=== PATIENT | female | born 1985 | race Caucasian/White ===

== ENCOUNTER 2017-11-17 17:42 | Emergency (ER) | payer MEDICAID, SELFPAY ==
[2017-11-17 17:43] VITALS: BP 157/84; PULSE 102; RESP 22; TEMP 36.8; O2SAT 100; BMI 22.6
--- NOTE | 2017-11-17 18:18 | CT_ITS ---
STUDY: CT ABDOMEN AND PELVIS WITHOUT CONTRAST REASON FOR EXAM: Female, 32 years old. Left flank pain for 4 days. RADIATION DOSAGE (If Supplied By Facility): CTDIvol = ( 6.67 ) mGy, DLP = ( 320.08 ) mGycm TECHNIQUE: Transaxial images were obtained from the dome of the diaphragm to the symphysis pubis without oral contrast, and without intravenous contrast. Sagittal and coronal images were reconstructed. Individualized dose optimization techniques were used for this CT. COMPARISON: None. FINDINGS: The visualized lung bases are unremarkable. The visualized portions of the heart are within normal limits. Normal liver. Normal gallbladder and extrahepatic biliary system. Normal spleen. Normal pancreas. Normal bilateral adrenal glands. Normal right kidney. Small cortical hypodensity within the anterior left kidney is noted consistent with small cysts given Hounsfield units. Normal visualized stomach. Normal small intestine. Normal colon. There is non-visualization of the appendix. Normal abdominal aorta. Normal inferior vena cava. Normal retroperitoneum. Normal urinary bladder. Clips within the posterior adnexa are noted adjacent to the likely retroflexed uterus. Normal abdominal wall. Normal osseous structures. CT/Abdomen/Pelvis without Cont IMPRESSION: 1. No evidence of hydronephrosis or nephrolithiasis. Otherwise no evidence of acute intra-abdominal process or focal inflammation. Electronically Signed: Eric Nowak DO at 20:38 EDT , Service support ,
--- NOTE | 2017-11-17 18:19 | ED.VISSUMM ---
- ER Visit Summary Date of Service: 11/17/17 Chief Complaint: Left flank pain History of Present Illness: The patient is a 32 F presenting with left flank pain ?4 days. Patient states this was gradual in onset and worsened over the last 2 days. She has had subjective fever. She has had nausea and vomiting. She has dysuria, hematuria, urinary frequency. She has history of bladder and kidney infections in the past. She went to urgent care and was sent to the ED for further evaluation. Physical Examination: Vitals are stable. Patient is afebrile. Alert no acute distress. HEENT exam is unremarkable. Neck is supple. Lungs are clear and equal bilaterally. Heart is regular rate and rhythm. Abdomen is soft nontender nondistended. No guarding or rebound Back: Left CVA tenderness Extremities are unremarkable. Skin is warm and dry. No focal neurologic deficit. Remainder of exam is unremarkable. Emergency Department Course and Treatment: She is given IV fluids, morphine, Phenergan with improvement. CBC, chemistries unremarkable. Urinalysis unremarkable. HCG negative. CT flank shows no acute process. Patient is resting comfortably on reevaluation. She is given prescription for Naprosyn and Flexeril. She is advised to follow-up with her primary care physician. Advised return to ED if worsening complaints. Disposition: Discharge home Impression: Left flank pain This note was generated with Cangrade dictation software. It may contain incorrect words, spelling, and punctuation that were not noted in review of the chart prior to signing ED Disposition - Plan for ED Patient: Chief Complaint: Flank Pain Referrals: Supa Gibson MD [NON-STAFF] -
[2017-11-17] MEDS: 0.9% Normal Saline 1,000 ML 1000 ML IV (18:33)
[2017-11-17] MEDS: Morphine 4 MG/ML Syringe IV (18:33)
[2017-11-17] MEDS: proMETHazine 25 MG/ML Syringe 6.25 MG IV (18:34)
[2017-11-17 19:14] LABS: Absolute Lymphocyte Count 2.01 X10^3/ul (0.83-4.51); Absolute Neutrophil Count 6.2 X10^3/uL (2.0-7.7); Basophil# 0.03 X10^3/uL; Basophil% 0.3 % (0-1); Eosinophil# 0.08 X10^3/uL; Eosinophils% 0.9 % (0-5); Hematocrit 42.6 % (37-47); Hemoglobin 14.4 g/dl (12.0-15.0); Lymphocyte # 2.01 X10^3/ul (4.0); Lymphocyte % 21.7 % (19-41); Mean Corp Hgb Conc 33.8 g/gl (32-36); Mean Corpuscular Hgb 29.4 pg (27.0-32.0); Mean Corpuscular Volume 87.1 fL (81-99); Mean Platelet Vol. 10.1 fl (6.2-12.0); Monocyte# 0.94 X10^3/uL; Monocyte% 10.2 % (0-10); Neutrophil # 6.18 X10^3/uL (2.7-7.7); Neutrophil % 66.7 % (47-70); Platelet Count 218 K/mm3 (150-450); RBC Distribution Width CV 13.8 % (11.6-14.6); RBC Distribution Width SD 44.2 fl (35.1-43.9); Red Blood Count 4.89 M/mm3 (4.2-5.4); White Blood Count 9.3 K/mm3 (4.4-11.0)
[2017-11-17 19:15] LABS: POSITIVE COUNT NO; POSITIVE DIFFERENTIAL NO; POSITIVE MORPHOLOGY NO
[2017-11-17 19:29] LABS: Anion Gap 5 (5-15); BUN 6 mg/dL (7-18); BUN/Creat Ratio 7.8 RATIO (10-20); Calcium,Total 9.1 mg/dL (8.5-10.1); Chloride 105 mmol/L (98-107); Creatinine, Serum 0.77 mg/dL (0.55-1.02); EST Glomerular Filtration Rate 93 mL/min (>60); Est Glom Filt Rate - Afr Amer 112 mL/min (>60); Estimated Creatinine Clearance 87.57 ml/min; Glucose 99 mg/dL (74-106); Potassium 3.9 mmol/L (3.5-5.1); Sodium Level 138 mmol/L (136-145)
[2017-11-17 19:35] LABS: Pregnancy, Serum, hCG Quali. NEGATIVE Negative (0-9 Nonpreg)
[2017-11-17 19:52] LABS: Bacteria 0 SEEN /hpf (None Seen); Mucous, Urine 0 SEEN /hpf (<or=2+); Red Blood Cells-Urine 0 SEEN /hpf (0-5); White Blood Cells 0 SEEN /hpf (0-5)
[2017-11-17 19:54] LABS: Color, Urine Yellow (Yellow); Glucose, Dipstick Normal (Normal); Ketone-Dipstick Negative (Negative); Leukocyte Esterase-Dipstick Negative /ul (Negative); Nitrite-Dipstick Negative (Negative); Occult Blood-Urine Negative /ul (Negative); Protein-Dipstick Negative (Negative); Urine Bilirubin Dipstick Negative (Negative); Urine Clarity Sl. Cloudy (Clear); Urine Urobilinogen Normal (Normal)
[2017-11-17 20:01] VITALS: BP 126/75; PULSE 84; RESP 16; O2SAT 98
[2017-11-17 20:01] LABS: Squamous Epithelial Cells - UA 0-5 SEEN /hpf (5-10)
--- NOTE | 2017-11-17 21:20 | ED.DEP ---
ED Disposition - Plan for ED Patient: Chief Complaint: Flank Pain Instructions: ED Flank Pain Uncertain Cause Prescriptions: Naproxen [Naprosyn] 500 mg PO BID PRN #20 tablet Cyclobenzaprine [Flexeril] 10 mg PO TID PRN #20 tablet PRN Reason: Muscle Spasm Referrals: Supa Gibson MD [NON-STAFF] - Giles Vasquez MD [STAFF PHYSICIAN] -
[2017-11-17 21:21] VITALS: BP 121/78; PULSE 67; RESP 15; O2SAT 98
== END 2017-11-17 21:30 | disposition home or self-care (01) ==
PROVIDERS: Emergency Provider Emergency Medicine
DX: R10.9 Unspecified abdominal pain (principal); F41.9 Anxiety disorder, unspecified; Z79.899 Other long term (current) drug therapy; Z72.0 Tobacco use
CPT/HCPCS: 74176; 80048; 81001; 84703; 85025; 96361; 96374; 96375; 99284; J7030; A4216

== ENCOUNTER 2019-08-23 09:20 | Emergency (ER) | payer SELFPAY ==
[2019-08-23 09:22] VITALS: BP 126/47; PULSE 103; RESP 17; TEMP 37.1; O2SAT 98; BMI 22.4
--- NOTE | 2019-08-23 09:33 | RAD_ITS ---
STUDY: X-RAY - RIGHT FOOT CLINICAL: Female, 34 years old. FALL. PAIN DORSAL METATARSALS TECHNIQUE: 3 view(s) of the foot. COMPARISON: None. FINDINGS: Normal talus, calcaneus, and tarsal bones. Normal visualized subtalar, talonavicular, calcaneocuboid, tarsal and tarsometatarsal articulations. Normal metatarsi. Normal metatarsophalangeal joint of the great toe. Normal tibial and fibular sesamoid bones. Normal interphalangeal joint of the great toe. Normal phalanges of the great toe. Normal second through fifth metatarsophalangeal joints. Normal interphalangeal joints and phalanges of the lesser toes. The soft tissue structures are unremarkable. RAD/Foot min 3 Views IMPRESSION: Normal x-ray examination of the foot. Electronically Signed: Leonid Sánchez MD at 10:14 EST Tel , Service support ,
--- NOTE | 2019-08-23 09:33 | RAD_ITS ---
STUDY: X-RAY - RIGHT KNEE REASON FOR EXAM: Female, 34 years old. FALL. LATERAL BRUISING AND SWELLING TECHNIQUE: 4 view(s) of the knee. COMPARISON: None. FINDINGS: Normal visualized distal femur. Normal visualized proximal tibia and fibula. Normal proximal tibiofibular articulation. Normal medial femorotibial compartment. Normal lateral femorotibial compartment. Normal patellofemoral articulation. The soft tissue structures are unremarkable. RAD/Knee 4 or More Views IMPRESSION: Normal x-ray examination of the knee. Electronically Signed: Leonid Sánchez MD at 10:13 EST Tel , Service support ,
--- NOTE | 2019-08-23 09:37 | ED.VIS.GEN ---
History of Present Illness Chief Complaint: Lower Extremity Injury Informant: Patient Onset: Today Narrative: Patient states that she was on her way to work today when she slipped and fell on the ice. Hit her right leg went lateral and she felt a pop in the knee. She notes pain diffusely around the right knee. She also notes some pain in the foot. States that she stoved her shoulder and it sore but she is able to range. She denies any head injury. She notes a prior knee injury which she was never evaluated for. That injury occurred about 10 years ago and she states her knee has never felt the same. Past Medical History - Allergies and Home Meds Allergies/Adverse Reactions: Allergies Penicillins Allergy (Verified 08/23/19 09:21) Anaphylaxis Primary Care Physician: Care Physician,No Primary [Primary Care Provider] - Smoking Status: Current every day smoker Review of Systems General: Denies: Chills, Fever, Sweats Eyes: Denies: Visual changes - bilaterally, Diplopia ENT: Denies: Rhinorrhea, Sore throat Cardiovascular: Denies: Chest pain, Palpitations Respiratory: Denies: Dyspnea, Cough, Dyspnea on exertion Gastrointestinal: Denies: Abdominal pain, Nausea, Vomiting, Diarrhea, Melena, Hematochezia Genitourinary: Denies: Dysuria, Hematuria, Frequency Musculoskeletal: Reports: Extremity Pain. Denies: Back pain Skin: Denies: Rash, Wounds Neurological: Denies: Headache, Weakness, Numbness Physical Exam Vital Signs/Narrative: Vital Signs Temp Pulse Resp BP Pulse Ox 08/23/19 09:22 98.7 F 103 H 17 126/47 H 98 Inital Vital Signs reviewed: Yes General: Well nourished, Well developed, No Acute Distress Head: Normocephalic, Atraumatic Eyes: Perrl, EOMI ENT: Moist mucous membranes, No rhinorrhea Neck: Supple, Nontender Cardiovascular: Regular rate, Regular rhythm, No murmurs Respiratory: No distress, CTA bilaterally, Chest nontender Abdomen: Soft, Nontender, Nondistended, Normal bowel sounds Back: Nontender, Normal Inspection Extremities: No edema, - - Patient has 2 areas of contusion laterally 1 over the distal lateral femoral condyle and 1 over the lateral tibial plateau. She has diffuse tenderness throughout the knee. There is no obvious joint effusion. Extensor mechanism is intact. Patient is guarding of the knee limits ligamentous testing. Patient also complains of tenderness about the distal foot dorsal surface. Skin: Normal color, No rash Neurological: Alert, Oriented x3, Cranial nerves II-XII grossly intact, Normal Strength, Normal Sensation Psychological: Normal affect, Normal Mood Diagnostic/Tx/Re-eval - Medical Decision Making X-rays right knee and foot were negative for fracture. Patient be placed in Tucker wrap and given crutches. Advance weightbearing as tolerated. She received a dose of Toradol here. Continued anti-inflammatories at home. If she is not improved in 10 to 14 days would recommend follow-up with orthopedics. She sees Dr. Alvarado. ED Disposition - Plan for ED Patient: Disposition: Home or Assisted Living Diagnosis: Right knee sprain, Right foot sprain Instructions: Knee Sprain Referrals: Lawrence Alvarado DO [STAFF PHYSICIAN] -
[2019-08-23] MEDS: Ketorolac 60 MG/2 ML Vial IM (10:04)
== END 2019-08-23 10:39 | disposition home or self-care (01) ==
PROVIDERS: Emergency Provider Emergency Medicine
DX: S83.91XA Sprain of unspecified site of right knee, initial encounter (principal); S93.601A Unspecified sprain of right foot, initial encounter; W00.0XXA Fall on same level due to ice and snow, initial encounter; Y93.9 Activity, unspecified; F17.200 Nicotine dependence, unspecified, uncomplicated
CPT/HCPCS: 73564; 73630; 96372; 99283

== ENCOUNTER 2020-01-02 06:17 | Emergency (ER) | payer SELFPAY ==
[2020-01-02 06:19] VITALS: BP 158/84; PULSE 95; RESP 14; TEMP 37; O2SAT 100; BMI 23.5
--- NOTE | 2020-01-02 06:23 | EKG12_ITS ---
Test Reason : SYNCOPE Blood Pressure : / mmHG Vent. Rate : 087 BPM Atrial Rate : 087 BPM P-R Int : 130 ms QRS Dur : 080 ms QT Int : 356 ms P-R-T Axes : 076 077 039 degrees QTc Int : 428 ms Normal sinus rhythm Normal ECG Confirmed by PUJA VAENSSA ([id number]), market editor AMA RABAGO ([id number]) on 01/08/2020 8:03:53 AM Referred By: ELI Confirmed By:PUJA VANESSA
--- NOTE | 2020-01-02 06:29 | ED.VIS.GEN ---
History of Present Illness Chief Complaint: Syncope Narrative: Patient presenting for evaluation secondary to significant anxiety, syncope, and a panic attack. Patient reports that she does have an underlying history of some anxiety that she has been medicated for in the past, she actually has a prescription for Lexapro that she is supposed to start but she has not yet picked it up. Patient tells me that over the course of the last 2 weeks her significant other has been putting her through some stuff and she has been having significant anxiety and has been working all the time. Patient tells me that for the better part of the last 4 days she has been unable to eat, and basically has not drank any liquids. Patient tells me that she was getting out of the shower this morning and she suffered a syncopal episode. She does report that she has been having some intermittent chest pain, but there was no chest pain preceding the syncopal episode, no palpitations or shortness of breath she simply became lightheaded and then passed out. Patient had another episode where she passed out in her car and her mother found her, and then she had another 1 upon arrival to the emergency department. No history of DVT or PE. Patient is not currently on any medications. She denies any illicit drug use, alcohol, but she is a smoker. Review of systems otherwise negative. Patient is not suicidal or homicidal and not hallucinating. Past Medical History - Allergies and Home Meds Allergies/Adverse Reactions: Allergies Penicillins Allergy (Verified 01/02/20 06:23) Anaphylaxis Primary Care Physician: Care Physician,No Primary [Primary Care Provider] - Prior records reviewed: Yes Past Medical History: - - Past history of anxiety Smoking Status: Current every day smoker Alcohol: None Drugs: None Review of Systems All systems negative except as indicated General: Denies: Chills, Fever, Sweats Eyes: Denies: Visual changes - bilaterally, Diplopia ENT: Denies: Rhinorrhea, Sore throat Cardiovascular: Reports: - - Syncope Respiratory: Denies: Dyspnea, Cough, Dyspnea on exertion Gastrointestinal: Reports: - - Anorexia Genitourinary: Denies: Dysuria, Hematuria, Frequency Musculoskeletal: Denies: Back pain, Extremity Pain Skin: Denies: Rash, Wounds Neurological: Denies: Headache, Weakness, Numbness Psych: Reports: Anxiety Physical Exam Vital Signs/Narrative: Vital Signs Temp Pulse Resp BP Pulse Ox 01/02/20 06:19 98.6 F 95 14 158/84 H 100 Inital Vital Signs reviewed: Yes General: Well nourished, Well developed, - - Significantly anxious, tremulous, and tearful Head: Normocephalic, Atraumatic Eyes: Perrl, EOMI ENT: Moist mucous membranes Neck: Supple, - - Right-sided paraspinal tenderness to palpation going up to the occiput, no midline tenderness or step-offs Cardiovascular: Regular rhythm, No murmurs, Tachycardia Respiratory: No distress, CTA bilaterally, Chest nontender Abdomen: Soft, Nontender, Nondistended, Normal bowel sounds Back: Nontender, Normal Inspection Extremities: Nontender, No edema Skin: Normal color, No rash Neurological: Alert, Oriented x3, Cranial nerves II-XII grossly intact, Normal Strength, Normal Sensation Psychological: Tearful, - - Significantly anxious and tremulous, not suicidal homicidal or hallucinating. Diagnostic/Tx/Re-eval Laboratory Data 01/02/20 01/02/20 01/02/20 06:30 06:30 06:30 WBC 9.8 RBC 4.90 Hgb 14.8 Hct 44.6 MCV 91.0 MCH 30.2 MCHC 33.2 RDW Std Deviation 44.3 H RDW Coeff of January 13.3 Plt Count 224 MPV 10.4 Immature Gran % (Auto) 0.400 Neut % (Auto) 62.2 Lymph % (Auto) 22.6 Gilchrist % (Auto) 11.6 H Eos % (Auto) 2.6 Baso % (Auto) 0.6 Absolute Neuts (auto) 6.1 Absolute Lymphs (auto) 2.21 Nucleated RBC % 0 Sodium 140 Potassium 3.9 Chloride 107 Carbon Dioxide 26.0 Anion Gap 7 BUN 8 Creatinine 1.12 H Estim Creat Clear Calc 59.10 Est GFR (MDRD) Af Amer 72 Est GFR (MDRD) Non-Af 59 L BUN/Creatinine Ratio 7.1 L Glucose 110 H Calcium 9.0 Magnesium 2.3 Total Bilirubin 1.00 AST 20 ALT 23 Alkaline Phosphatase 46 Troponin I < 0.015 Total Protein 7.5 Albumin 4.2 Globulin 3.3 Albumin/Globulin Ratio 1.3 Serum , Qual NEGATIVE - EKG Initial EKG Interpretation: - - Sinus rhythm of [address] segments normal T waves normal NJ and QTc intervals no evidence of WPW or Brugada morphology no evidence of acute ischemia or arrhythmia - Medical Decision Making Patient presented secondary to anxiety and syncope. EKG was obtained which was found to be within normal limits. CBC and chemistry remarkable only for some mild elevation of the patient's creatinine at 1.1 with a baseline of 1.8. Patient was given IV saline. hCG was negative troponin was found to be negative. Patient was given Ativan in the emergency department. Repeat evaluation of the patient at 0715 shows symptomatic improvement. Patient at this point I believe is likely having an element of panic attack, I do not feel that she requires admission or further work-up. Patient has a prescription for Lexapro that she is to start today she was encouraged to pick that up I will send the patient home with as needed Xanax to be taken as needed. Patient was discharged in improved condition. ED Disposition - Plan for ED Patient: Disposition: Home or Assisted Living Diagnosis: Panic attack, Syncope, Dehydration Instructions: ED Stress React Prescriptions: Alprazolam [Xanax] 0.5 mg PO TID 5 Days #15 tab Prescription Printed
[2020-01-02] MEDS: 0.9% Normal Saline 1,000 ML 1000 ML IV (06:32)
[2020-01-02] MEDS: LORazepam 2 MG/ML Syringe 0.5 MG IV (06:32)
[2020-01-02 06:43] LABS: Absolute Lymphocyte Count 2.21 X10^3/uL (0.83-4.51); Absolute Neutrophil Count 6.1 X10^3/uL (2.0-7.7); Basophil# 0.06 X10^3/uL; Basophil% 0.6 % (0-1); Eosinophil# 0.25 X10^3/uL; Eosinophils% 2.6 % (0-5); Hematocrit 44.6 % (37-47); Hemoglobin 14.8 g/dL (12.0-15.0); Lymphocyte # 2.21 X10^3/ul (4.0); Lymphocyte % 22.6 % (19-41); Mean Corp Hgb Conc 33.2 g/dL (32-36); Mean Corpuscular Hgb 30.2 pg (27.0-32.0); Mean Platelet Vol. 10.4 fl (6.2-12.0); Monocyte# 1.14 X10^3/uL; Monocyte% 11.6 % (0-10); NRBC Flagged by Analyzer 0 % (0-5); Neutrophil # 6.09 X10^3/uL (2.7-7.7); Neutrophil % 62.2 % (47-70); Platelet Count 224 K/mm3 (150-450); RBC Distribution Width CV 13.3 % (11.6-14.6); RBC Distribution Width SD 44.3 fl (35.1-43.9); White Blood Count 9.8 K/mm3 (4.4-11.0)
[2020-01-02 06:51] LABS: Internal QC Validated? YES +Cl - CLEAR BKGD; Pregnancy, Serum, hCG Quali. NEGATIVE Negative
[2020-01-02 07:02] LABS: ALB/GLOB Ratio 1.3 RATIO (0.9-2.4); AST(SGOT) 20 U/L (15-37); Alanine Aminotransfer ALT/SGPT 23 U/L (13-56); Albumin, Serum 4.2 g/dL (3.2-5.0); Alkaline Phosphatase 46 U/L (45-117); Anion Gap 7 (5-15); BUN 8 mg/dL (7-18); BUN/Creat Ratio 7.1 RATIO (10-20); Chloride 107 mmol/L (98-107); Creatinine, Serum 1.12 mg/dL (0.55-1.02); EST Glomerular Filtration Rate 59 mL/min (>60); Est Glom Filt Rate - Afr Amer 72 mL/min (>60); Globulin 3.3 g/dL (2.2-4.2); Glucose 110 mg/dL (74-106); Magnesium 2.3 mg/dL (1.6-2.6); Potassium 3.9 mmol/L (3.5-5.1); Protein, Total 7.5 g/dL (6.4-8.2); Sodium Level 140 mmol/L (136-145)
[2020-01-02 07:31] VITALS: BP 128/87; PULSE 77; RESP 14; O2SAT 99
[2020-01-02 08:24] VITALS: BP 121/75; PULSE 81; RESP 19; O2SAT 99
== END 2020-01-02 08:30 | disposition home or self-care (01) ==
PROVIDERS: Emergency Provider Emergency Medicine
DX: F41.0 Panic disorder [episodic paroxysmal anxiety] (principal); R55 Syncope and collapse; E86.0 Dehydration; F17.200 Nicotine dependence, unspecified, uncomplicated
CPT/HCPCS: 80053; 83735; 84484; 84703; 85025; 93005; 96361; 96374; 99285; J7030; A4216

== ENCOUNTER 2021-07-14 09:01 | Emergency (ER) | payer BC, SELFPAY ==
[2021-07-14 09:02] VITALS: BP 131/90; PULSE 112; RESP 16; TEMP 36; O2SAT 100; BMI 24.2
--- NOTE | 2021-07-14 09:30 | EX.ED.UPPERE ---
HPI History of Present Illness Chief Complaint: Laceration Informant: patient Narrative Narrative: Healthy 36-year-old female was reaching into her chest freezer to grab a roast to put in before she went to work this morning, as she was moving boxes around, she sustained a laceration to her right forearm that she subsequently discovered was due to a knife that was in one of the boxes of meat she had bought from a store. She states it is not her knife. She has some numbness in her right small finger now, but she can move everything. [id number]. Tetanus Immunization: 5-10 years [facility] Medical History Uterine prolapse Home Medications doxycycline monohydrate 100 mg PO BID 5 Days #10 capsule 07/14/21 [Rx Last Taken Unknown] multivitamin 1 tab PO DAILY 07/14/21 [History Last Taken Unknown] Allergy/AdvReac Type Severity Reaction Status Date / Time Penicillins Allergy Anaphylaxis Verified 07/14/21 09:01 Surgical History (Updated 07/14/21 @ 09:20 by Pedro Malone) Hx of appendectomy Hx of tubal ligation Social History Smoking Status: Current every day smoker tobacco type: cigarettes ROS ROS ED Constitutional Constitutional ED: Denies chills or fever(s) Musculoskeletal Musculoskeletal: Reports extremity pain; Denies neck pain Integumentary Reports as per HPI and wounds; Denies Abrasions or rash Neurologic Neurologic: Reports paresthesias; Denies weakness EXAM Physical Exam Const Vital Signs: 07/14/21 09:02 Temperature 96.8 F L Temperature Source Temporal Pulse Rate 112 H Respiratory Rate 16 Blood Pressure 131/90 H Blood Pressure Mean 103 Pulse Ox 100 Oxygen Delivery Method Room Air Positive well nourished and well developed General Appearance ED: well developed and NAD Neck full ROM and supple Back/Spine normal ROM and normal to inspection Extremity full ROM Extremity Narrative: 8 cm full-thickness laceration down to the fascia along the mid dorsum of the right forearm, does not include any joints. Clean appearing and linear. Fascia appears to be intact except for one small area, there is no tendon, nerve, vessel injury. FDP, FDS, all extensor function intact. Neuro oriented x3 and no focal motor deficits Neuro Narrative: Decrease in station light touch right small finger both sides, otherwise sensation intact. Normal motor function. Sensorium / Orientation: alert Psych mental status grossly normal and thought process normal Skin no wounds Rashes: no rashes MDM MDM MDM Narrative Medical decision making narrative: Laceration cleansed and repaired see the procedure note. Since she had 1 small area of fascia that was penetrated, I will put her on 5 days of prophylactic antibiotics. She has near anaphylactic symptoms of penicillin, so we will avoid those and cephalosporins just in case, and we will put her on doxycycline. She is given ibuprofen for soreness and a wrist splint to use as needed for pain since it was on the extensor surface of her forearm. Her tetanus was updated. Procedures Lacerations R forearm: Length: 8 cm Depth: Fascia Shape: Linear Prep: Sterile Conditions and Chlorhexadine Laceration repair: Irrigated, Lidocaine with epi (5cc), Local and Skin sutures Irrigated (ml): 100 Number of Sutures/Riva: 9 Suture Information: Simple (#4), Horizontal, Mattress (#5) and 4-0 Discharge Plan Triage Chief Complaint: Laceration ED Provider: Laureano Posadas Dx/Rx/DC Orders Clinical Impression: Laceration of right forearm, [id number] (DTP) vaccination Instructions: ED Laceration: All Closures Prescriptions: New doxycycline monohydrate 100 MG capsule 100 mg PO BID 5 Days Qty: 10 RF: 0 No Action multivitamin Tablet 1 tab PO DAILY RF: 0 Primary Care Provider: Melonie Amos NP Referrals: Meloine Amos 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 Wear wrist splint as needed for soreness/discomfort. Disposition Disposition: Home, Self Care
[2021-07-14] MEDS: Diphth,Pertuss(Acell),Tet Vac 0.5 ML Vial IM (09:37)
[2021-07-14] MEDS: Ibuprofen 600 MG Tablet PO (10:27)
[2021-07-14] MEDS: Lidocaine 1% /Epi 1:100 (20ml) 20 ML Vial INFILT (10:27)
== END 2021-07-14 10:39 | disposition home or self-care (01) ==
PROVIDERS: Emergency Provider Emergency Medicine; PCP Nurse Practitioner Family; Visit Provider Emergency Medicine
DX: S51.811A Laceration without foreign body of right forearm, initial encounter (principal); W26.0XXA Contact with knife, initial encounter; Y93.89 Activity, other specified; Y99.8 Other external cause status; F17.210 Nicotine dependence, cigarettes, uncomplicated
CPT/HCPCS: 12004; 90471; 90715; 99284

== ENCOUNTER 2021-07-27 11:57 | Outpatient (RCR) | payer BC, SELFPAY ==
--- NOTE | 2021-07-27 13:50 | HP.OTEVAL_ITS ---
Patient's Visit Information JULIÁN ALANIZ is a 36 year old F, referred to Occupational Therapy by Dr. Rosaura Carrasco MD, with a diagnosis of right forearm injury. Date of Evaluation: 07/27/21 Occupational Therapist: Tati Puga, JOHNIER/Dexter, CHT - Subjective This 36 year old female was seen for OT eval with dx of right forearm injury. pt states DOI 07/14/21 when she was attempting to get some meat out of her freezer she was cut by a sharp object. Stated the [employer] shop left a knife in the case of meat she bought. she went to ER and received 9 stitches-at that time all motor function was intact and slight sensation on LF and RF noted- Today pt arrives with stitches intact stated Dr. will canceled her apt today and she was to get stitches out. States she feels pulling when she moves her wrist of fingers. Pt states she has constant pain and will get a burring sensation. 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 PT would like to return to her PLOF. She will she hand specialist this wed. - Pain right forearm 8 Pain Intensity Range: 8 - ROM Wrist: wrist 35/30 left 75/70 ROM Comments: pt demo with limited right wrist ROM. pt unable to from composite fist due to pulling and increase in pain with movement. - Strength Expeditionary Fighting Vehicle Crewman: right 5# left 70# Lateral Pinch: right 2# left 10# Tripod Pinch: right unable left 10# Strength Comments: pt painful with resistive testing - Sensation Sensation Comments: pt reports numbness in right MF, RF and LF - Quick DASH-Disab of Arm,Shoulder& Hand Quick DASH Score: 96.6650 - Goals Goal:: pt will demo a right customer assistant strength at 45# or greater to return to performing ADls at IND level by d.c. pt will demo a right lateral and tripod pinch at 8# or greater to perform ADls and IADLs at PLOF. Goal:: Pt will demo an increase in wrist ROM equal to unaffected wrist to return pt to PLOF with grooming, dressing and home mtg tasks by D/C. pt will demo the ability to form tight composite fist to hold small objects and perform ADls by dc Goal:: Pt will report pain no greater than 3/10 with use of affected hand with BADLs and IADLs by d/c. Goal:: pt will demo ability to test digits on monofilaments at 2.83 by dc indicating sensory return. Goal:: Pt will demo understanding of scar mtg. by end of 2nd session to increase tissue extensibility to limit scar adhesions and allow full tendons function by d/c. - Rehabilitation General Assessment: pt is s/p 1 week and 6 days from right forearm laceration- stitches intact, dry but red - skin appears to be getting irritated with stitches- pt demo with limited ROM and strength to perform her ADLs. pt would benefit from skilled OT services 2-3x week for 4 weeks to assist pt in gaining full right wrist ROM and strength- Today therapist removed stitches (pt preeti. well and stiches came out well) therapist ed. pt on slow ROM exercises and to limit compensation by allowing hand to rest on table vs holding fingers and thumb in extension. pt demo understanding- therapy will continue to improve pts ROM and strength to return pt to PLOF- pt demo understanding and agree to POC. Rehabilitation Potential: Good - Anticipated Interventions A/AAROM/PROM, Strengthening, Scar Care, Triggerpoint Release, Desensitization, Sensory Retraining, Orthoses, Joint Protection/Energy Conservation, Fine Motor Coord/Alex, Sensory Stimulation, Education re Diagnosis, Home Program - Visit Plan Frequency: 2-3x /Week Duration: 4 Weeks TEXT: Thank you for the opportunity to evaluate your patient. For Medicare and Medicare HMO plans, please review the plan of care and approve it. It will need to be FAXED BACK to us at [phone] for Medicare purposes. Please let me know if there are questions or concerns regarding this plan of care. Physician Signature: Date:
--- NOTE | 2021-11-20 10:03 | HP.OT.NRP ---
JULIÁN ALANIZ was seen in my office for initial evaluation on 07/27/21. The following Plan of Care was established for this patient: Initial Frequency: 2-3x /Week Initial Duration: 4 Weeks Anticipated Interventions: A/AAROM/PROM, Strengthening, Scar Care, Triggerpoint Release, Desensitization, Sensory Retraining, Orthoses, Joint Protection/Energy Conservation, Fine Motor Coord/Alex, Sensory Stimulation, Education re Diagnosis, Home Program This patient was last seen in our office 07/27/21. Pertinent comments regarding their Occupational therapy will appear below: pt was seen for eval only and did not schedule apts. due to time lapse in services pt d/c at this time. At this point I will be discontinuing this patient from occupational therapy. I would be happy to see this patient again in the future if found appropriate by the physician. Thank you! Tati Puga, OTR/L, CHT
== END 2021-07-27 19:00 | disposition home or self-care (01) ==
LOC: OT 11:57
PROVIDERS: PCP Internal Medicine; Referring Provider Internal Medicine; Visit Provider Internal Medicine
DX: R29.898 Other symptoms and signs involving the musculoskeletal system (principal); S59.911D Unspecified injury of right forearm, subsequent encounter; X58.XXXD Exposure to other specified factors, subsequent encounter
CPT/HCPCS: 97110; 97166; 97530

== ENCOUNTER 2021-08-04 15:48 | Outpatient (CLI) | payer BC, SELFPAY ==
[2021-08-04 17:08] LABS: Amphetamine Urine VISTA NEGATIVE (<1000 ng/mL); Barbiturate Urine VISTA NEGATIVE (< 200 ng/mL); Benzodiazepine Urine VISTA NEGATIVE (< 200 ng/mL); Cocaine Urine VISTA NEGATIVE (< 300 ng/mL); Ecstacy Urine VISTA NEGATIVE (< 500 ng/mL); Methadone Urine VISTA NEGATIVE (< 300 ng/mL); PCP Urine VISTA NEGATIVE (< 25 ng/mL); THC Urine VISTA POSITIVE (< 50 ng/mL); Vista UDS pH Range 6
== END 2021-08-04 23:59 | disposition short-term general hospital (02) ==
LOC: LABSPEC 15:48
PROVIDERS: PCP Internal Medicine; Visit Provider Nurse Practitioner Family
DX: F41.9 Anxiety disorder, unspecified (principal)
CPT/HCPCS: 80307